=== PATIENT | male | born 1965 | race Caucasian/White ===

== ENCOUNTER 2022-10-03 10:22 | Emergency (ER) | payer OTHER, SELFPAY ==
--- NOTE | ~2022-10-03 | XR_ITS ---
EXAMINATION: XR chest 2V 10/03/2022 11:26 INDICATION: Syncope. Status post fall. PROCEDURE: 2 view chest COMPARISON: No prior studies for comparison. FINDINGS: The lungs are clear. The cardiomediastinal silhouette is within normal limits. There are no pleural effusions. There is no pneumothorax suspected. IMPRESSION: 1: NO ACUTE CARDIOPULMONARY DISEASE. Reviewed, dictated and finalized at location A.
--- NOTE | ~2022-10-03 | CT_ITS ---
EXAMINATION: CT brain wo con DATE: 10/03/2022 11:20 INDICATION: Syncopal episode TECHNIQUE: Computed tomography (CT) of the head was performed without intravenous contrast. The dose- length product was 605.33 mGy-cm. Automated exposure control and iterative reconstruction technique w ere employed. COMPARISON: None FINDINGS: Mild generalized brain parenchymal volume loss. No ventriculomegaly or midline shift. Basil ar cisterns are patent. No acute hemorrhage, infarction, mass or mass effect. Paranasal sinuses and m astoids are pneumatized. No depressed skull fractures. IMPRESSION: 1. No acute intracranial abnormality. Reviewed, dictated and finalized at location A.
--- NOTE | ~2022-10-03 | XR_ITS ---
XR hand RT min 3V 10/03/2022 11:26 Indication: Right hand pain after fall Procedure: 3 views right hand Comparison: No prior studies for comparison. Findings: There is a nondisplaced fracture first distal phalanx. Possible intra-articular extension. No foreign bodies. Mild soft tissue swelling. Impression: 1: Nondisplaced, possibly intra-articular fracture right first distal phalanx. Reviewed, dictated and finalized at location A. Impression: 1: Nondisplaced, possibly intra-articular fracture right first distal phalanx.
[2022-10-03 10:27] VITALS: BP 115/78; BP 119/75; PULSE 64; PULSE 66
--- NOTE | 2022-10-03 10:27 | ECG_ITS ---
Measurements Intervals [place] Rate: 59 P: -1 UT: 163 QRS: -9 QRSD: 89 T: 41 QT: 391 QTc: 389 Interpretive Statements SINUS BRADYCARDIA WITH A SHORT UT INTERVAL POSSIBLE RIGHT VENTRICULAR CONDUCTION DELAY [RSR (QR) IN V1/V2] NO PREVIOUS ECG AVAILABLE FOR COMPARISON Electronically Signed On 10-03-2022 14:04:35 CDT by Latoya Stubbs M.D.
[2022-10-03 10:29] VITALS: BP 98/76; PULSE 80
[2022-10-03] MEDS: SODIUM CHLORIDE 0.9% IV 1,000 ML 1000 ML (10:38)
--- NOTE | 2022-10-03 10:42 | ED.GENADULT ---
HPI - General Adult General Chief complaint: Syncope Stated complaint: finger injury, syncope Time Seen by Provider: 10/03/22 10:27 History of Present Illness HPI narrative: Partha Cedillo is a 57 y/o male with past medical hx of BPH. He presents today after having a syncope episode. He reports that his right thumb was smashed by an oven door, he noticed it was bleeding so he walked over to the sink where he started to rinse his thumb and then he started to feel like he was getting light headed and he passed out falling on to the floor. His witnessed it and tried to catch him. EMS was called to the scene. He was initially going to refuse treatment and he stood up to sign the papers to refuse and then had another syncope episode. He denies headache/chest pain/ shortness of breath/ numbness tingling/ He reports he had not eaten yet today - had only drank coffee. Related Data Allergies Allergy/AdvReac Type Severity Reaction Status Date / Time No Known Allergies Allergy Verified 10/03/22 10:38 Review of Systems Review of Systems: CONSTITUTIONAL: Denies fever, chills, or sweats. EYES: Denies visual changes, redness, or discharge. ENT: Denies rhinorrhea, congestion, sore throat, or otalgia. CARDIOVASCULAR: Denies chest pain, palpitations, or edema. RESPIRATORY: Denies cough or dyspnea. GASTROINTESTINAL: Denies abdominal pain, nausea, vomiting, or diarrhea. GENITOURINARY: Denies dysuria or hematuria. SKIN: Denies rash or itching. MUSCULOSKELETAL: Denies back pain, joint pain, or myalgia reports of slight right thumb pain. NEUROLOGIC: Denies headache, numbness, dizziness, or weakness. PSYCHIATRIC: Denies anxiety or depression. Exam Narrative: GENERAL: Well-appearing, well-nourished, and in no acute distress. HEAD: Normocephalic, atraumatic. EYES: PERRLA and EOMI. ENT: Nares clear, no rhinorrhea or epistaxis. Mucous membranes moist. Oropharynx without tonsillar hypertrophy exudate or other lesions. NECK: Supple. No adenopathy or masses. No carotid bruits or JVD CHEST: Clear to auscultation. No respiratory distress. No wheezes rales or rhonchi HEART: Regular rate and rhythm. No murmur heard. Normal peripheral pulses. ABDOMEN: Soft, nontender, nondistended, normal active bowel sounds. EXTREMITIES: Normal range of motion. No edema. Superficial laceration to the right distal phalanx of the right thumb. SKIN: Warm, dry, no rash. NEURO: No focal deficits. Alert and oriented x3. PSYCH: Normal mood and affect. Course Vital Signs Vital signs: Vital Signs Pulse Rate 64 10/03/22 10:27 Blood Pressure 119/75 10/03/22 10:27 Temperature 36.7 C 10/03/22 12:00 Pulse Rate 74 10/03/22 12:00 Respiratory Rate 16 10/03/22 12:00 Blood Pressure 133/92 H 10/03/22 12:00 Pulse Oximetry 100 10/03/22 12:00 Oxygen Delivery Room Air 10/03/22 10:46 Vitals reviewed by me. Medical Decision Making MDM Narrative Medical decision making narrative: Patient is alert and oriented X4 NIHSS is 0 Pupils equal and reactive EOM intact no nystagmus noted No chest pain / shortness of breath 1cm laceration near nail bed of the right thumb area. oozing small amount of blood Concern for : Cardiac Ischemia/ Pulmonary Embolism/ Vasovagal / Dehydration/ Right distal phalanx fracture/ Labs are stable Head CT stable EKG stable Chest x ray stable pt's syncope was likely a vasovagal episode which he states he has had before. He denies any symptoms at this time and feels ready for discharge home. X ray of his right hand shows a distal phalanx fracture of the right thumb. Updated pt that we will start him on antibiotics to prevent infection and he will need to follow up with Hand specialist. Updated pt on results of work up Patient and his verbalize understanding and all questions answered. Right thumb cleansed/ antibiotic ointment applied with bandage and splint placed Patient given instructio
[2022-10-03 10:46] VITALS: BP 115/74; PULSE 62; RESP 16; TEMP 36.8; O2SAT 100
[2022-10-03 10:49] LABS: Basophils Percent Auto 0.3 % (0.2-1.2); Eosinophils Percent Auto 0.6 % (0-4.4); Hematocrit 42.2 % (42.0-52.0); Immature Granulocyte Absolute 0.01 K/mm3 (0.00-0.031); Immature Granulocyte Percent A 0.2 % (0-0.5); Lymphocytes Absolute Auto 1.68 K/mm3 (0.9-3.2); Lymphocytes Percent Auto 26.8 % (18.3-44.2); Mean Corpuscular HGB Conc 33.2 g/dl (32-36); Mean Corpuscular Hemoglobin 29.9 pg (26-34); Mean Platelet Volume 9.8 fl (7.4-10.4); Monocytes Absolute Auto 0.4 K/mm3 (0.1-0.6); Monocytes Percent Auto 5.7 % (2.6-8.5); Neutrophils Absolute Auto 4.2 K/mm3 (1.3-6.7); Neutrophils Percent Auto 66.4 % (45.5-73.1); Platelet Count Result 254 k/mm3 (150-375); Red Blood Count 4.69 M/mm3 (4.6-6.20); Red Cell Distribution Width 13.1 % (11.5-14.5); White Blood Count 6.3 K/mm3 (4.5-10.0)
[2022-10-03 10:58] LABS: Alanine Aminotransferase 21 U/L (6-50); Albumin Level 4.2 g/dL (3.5-5.1); Alkaline Phosphatase 54 U/L (38-126); Anion Gap 5 mmol/L (8-16); Aspartate Amino Transferase 26 U/L (17-59); Bilirubin,Total 0.4 mg/dL (0.2-1.3); Blood Urea Nitrogen 16 mg/dL (9-20); Calcium 8.9 mg/dL (8.4-10.2); Carbon Dioxide 28 mmol/L (22-30); Chloride 105 mmol/L (98-107); Estimated CRCL calculation 86 ml/min; Estimated Glomerular Filt Rate > 60; Glucose 108 mg/dL (65-110); Potassium 4.4 mmol/L (3.4-5.0); Sodium 138 mmol/L (137-145)
[2022-10-03 10:59] LABS: Magnesium 2.2 mg/dL (1.6-2.3); Prothrombin Time 13.7 Seconds (11.1-14.7)
[2022-10-03 11:00] VITALS: BP 133/92; PULSE 80; RESP 18; TEMP 36.8; O2SAT 100
[2022-10-03 11:13] LABS: Troponin I < 0.012 ng/mL (0.000-0.034)
[2022-10-03 11:50] LABS: D Dimer 0.43 ug/mL (<0.48)
[2022-10-03 12:00] VITALS: BP 133/92; PULSE 74; RESP 16; TEMP 36.7; O2SAT 100
[2022-10-03 12:55] VITALS: BP 116/78; PULSE 68; RESP 16; TEMP 36.8; O2SAT 98
== END 2022-10-03 12:57 | disposition home or self-care (01) ==
PROVIDERS: Emergency Medicine; Emergency Provider Nurse Practitioner Family; PCP Internal Medicine
DX: R55 Syncope and collapse (principal); S62.524A Nondisplaced fracture of distal phalanx of right thumb, initial encounter for closed fracture; W23.2XXA Caught, crushed, jammed or pinched between a moving and stationary object, initial encounter
CPT/HCPCS: 36415; 70450; 71046; 73130; 80053; 83735; 84484; 85025; 85380; 85610; 85730; 93005; 96360; 99284; J7030